=== PATIENT | male | born 1965 | race Caucasian/White ===

== ENCOUNTER 2021-06-15 19:57 | Inpatient (IN) | payer MEDICARE, OTHER ==
[~2021-06-15] VITALS: Ht 177.8 cm; Wt 99.8 kg
--- NOTE | 2021-06-15 20:06 | NUR ---
PT CAME FOR MEDICAL CLEARANCE FROM [facility], PLACED ON 5150 HOLD FOR DTS. PT NOTED TO BE CALM AND COOPERTIVE AT THIS MOMENT . PROVIDED PT WITH CALM, SAFE ENVIRONMENT.
--- NOTE | 2021-06-15 20:10 | NUR ---
DR. MORSE AT BEDSIDE, MSE IN PROGRESS.
--- NOTE | 2021-06-15 20:11 | NUR ---
NURSE PROPERTY ASSISTANT AWARE THAT WE NEED SITTER.
[2021-06-15] MEDS ORDERED: CARV6.252 PO (20:15)
[2021-06-15] MEDS ORDERED: RIVA20TA PO (20:15)
[2021-06-15] MEDS ORDERED: AMOX500C2 PO (20:15)
[2021-06-15] MEDS ORDERED: ACET-2154 PO (20:15)
[2021-06-15] MEDS ORDERED: DIGO125T5 PO (20:15)
[2021-06-15] MEDS ORDERED: ALBUTEROL SULFATE 2.5 MG/3 ML NEBU NEB ONE (21:15)
--- NOTE | 2021-06-15 21:21 | NUR ---
XRAY AT BEDSIDE.
--- NOTE | 2021-06-15 21:25 | NUR ---
LAB AT BEDSIDE.
[2021-06-15 21:37] LABS: HEMATOCRIT 41.6 % (36.7-47.1); MEAN CORPUSCULAR HEMOGLOBIN 35.3 uug (23.8-33.4); MEAN CORPUSCULAR VOLUME 102.4 fL (73.0-96.2); PLATELET COUNT (AUTO) 144 K/uL (152-348)
[2021-06-15] MEDS ORDERED: ALBUTEROL SULFATE 2.5 MG/3 ML NEBU ONE (21:38)
[2021-06-15 21:45] LABS: CREATININE 0.9 mg/dL (0.6-1.3); POTASSIUM 4.3 mmol/L (3.5-5.1)
[2021-06-15] MEDS: MAGNESIUM CHLORIDE 64 MG TABLET.SA PO SCH (22:30)
[2021-06-15] MEDS ORDERED: predniSONE 20 MG TABLET PO ONE (22:30)
[2021-06-15] MEDS ORDERED: predniSONE 20 MG TABLET ONE (22:41)
--- NOTE | 2021-06-15 22:51 | NUR ---
GAVE REPORT TO AYLEEN MYERS.
[2021-06-15] MEDS ORDERED: MAG HYDROX/AL HYDROX/SIMETH 30 ML LIQUID UDC PO PRN (23:15)
[2021-06-15] MEDS ORDERED: ACETAMINOPHEN 325 MG TABLET PO PRN (23:15)
[2021-06-15] MEDS ORDERED: MAGNESIUM HYDROXIDE 30 ML LIQUID UDC PO PRN (23:15)
[2021-06-15] MEDS ORDERED: BLOOD SUGAR DIAGNOSTIC 1 EACH STRIP VI ONE (23:15)
--- NOTE | 2021-06-15 23:35 | NUR ---
Pt. admitted to [facility] , under care of Dr. VAZQUEZ AND DR. EDWARD DX: PSYCHOSIS 5150 HOLD DTS Belongs List completed
[2021-06-15 23:38] VITALS: BP 138/86
[2021-06-16] MEDS: LORAZEPAM 1 MG TABLET PO PRN ×4 (00:19→22:50)
[2021-06-16] MEDS ORDERED: ALBU18HF2 INH (00:28)
[2021-06-16] MEDS ORDERED: HYDROCODONE/APAP 5-325MG TABLET PO STA (01:04)
[2021-06-16] MEDS: TEMAZEPAM 7.5 MG CAPSULE PO PRN ×2 (01:12→20:52)
[2021-06-16] MEDS ORDERED: ACETAMINOPHEN 325 MG TABLET PO PRN (01:15)
--- NOTE | 2021-06-16 02:16 | NUR ---
ADMISSION NOTE : 56 YRS OLD MALE WHO RENTS A ROOM AND LIVES BY HIMSELF WENT TO [facility] ED COMPLAINING OF SUICIDE IDEATION,WHEN ASKED ABOUT A PLAN ,PT STATED,"ANY WAY POSSIBLE,I AM TIRED OF LIVING."HE WAS TRANSFERRED TO [facility] ED TO BE ADMITTED TO MENTAL HEALTH UNIT.PT ARRIVED TO THE UNIT AFTER MEDICALLY CLEARED VIA WHEELCHAIR ON A 5150 FOR DANGER TO SELF AND GRAVE DISABILITY. PATIENT WAS COOPERATIVE WITH INTERVIEW PROCESS. PATIENT WAS PROVIDED WITH PATIENTS RIGHTS MANUAL. PLAN OF CARE IN PLACE. SAFETY PRECAUTIONS IN PLACE. WILL MONITOR FOR SAFETY.
[2021-06-16 07:34] VITALS: BP 126/80
[2021-06-16] MEDS: DIGOXIN 125 MCG TABLET PO SCH (09:55)
[2021-06-16] MEDS: CARVEDILOL 6.25 MG TABLET PO SCH ×2 (09:56→16:37)
[2021-06-16] MEDS: MAGNESIUM CHLORIDE 64 MG TABLET.SA PO SCH (10:01)
--- NOTE | 2021-06-16 10:41 | NUR ---
ALBINO Initial Discharge Note Pt currently resides in independent living located at [address] [place] [address] ([phone]). ALBINO met with pt to discuss discharge planning and pt reports he would like to be referred to a SNF near [place]. Pt requested referral to [facility] where his doctors have privilege. LABINO will continue to work with pt and MD to ensure a safe and proper discharge plan.
--- NOTE | 2021-06-16 10:42 | NUR ---
Firearms Report Supervisor Ordnance Truck Installation completed and submitted a DOJ firearms report for 5150 danger to self certifications. A copy of report has been placed in patient chart.
--- NOTE | 2021-06-16 12:30 | NUR ---
SW Brief Substance Abuse Intervention Patient was provided with a brief substance abuse intervention and referred to the following substance abuse programs: [facility] Substance Abuse Self-helpline ([phone]); [facility] ([phone]); [facility] ([phone]).
[2021-06-16 14:59] LABS: BILIRUBIN,TOTAL 0.4 mg/dL (0.2-1.0); CREATININE 0.8 mg/dL (0.6-1.3); POTASSIUM 4.3 mmol/L (3.5-5.1); TOTAL PROTEIN, SERUM 7.3 g/dL (6.4-8.2)
[2021-06-16] MEDS: HYDROCODONE/APAP 5-325MG TABLET PO PRN ×2 (15:07→21:33)
[2021-06-16 16:02] VITALS: BP 114/70
[2021-06-16] MEDS: RIVAROXABAN 10 MG TABLET PO SCH (16:40)
[2021-06-16] MEDS: ALBUTEROL SULFATE 2.5 MG/3 ML NEBU NEB PRN (19:19)
[2021-06-16 20:01] VITALS: BP 109/70
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
[2021-06-17] MEDS: HYDROCODONE/APAP 5-325MG TABLET PO PRN ×4 (03:50→23:16)
[2021-06-17] MEDS: LORAZEPAM 1 MG TABLET PO PRN ×4 (04:52→23:16)
[2021-06-17 07:30] VITALS: BP 126/99
[2021-06-17] MEDS: MAGNESIUM CHLORIDE 64 MG TABLET.SA PO SCH (08:13)
[2021-06-17] MEDS: DIGOXIN 125 MCG TABLET PO SCH (08:14)
[2021-06-17] MEDS: CARVEDILOL 6.25 MG TABLET PO SCH ×2 (08:14→17:25)
[2021-06-17] MEDS: ALBUTEROL SULFATE 2.5 MG/3 ML NEBU NEB PRN (09:09)
--- NOTE | 2021-06-17 11:15 | NUR ---
Patient is given Ativan 1 mg at 11:07 for anxiety, will be monitored for effectiveness.
[2021-06-17 16:00] VITALS: BP 120/88
--- NOTE | 2021-06-17 16:12 | NUR ---
Received patient awake in his room. A/O X 3 to person, place, situation. Pt. affect is isolative, withdrawn, depressed, fixated on PRN and request them on the clock. Compliant with medications. Patient is given PRN [place] 325 mg at 10:00 and 16:05 for lower back pain rated 8 and 9 on the scale of 1 - 10, will be monitored for effectiveness. Patient is given PRN Ativan 1 mg at 11:07 for anxiety, effective. Ambulates independently. Self care. Continent of bladder and bowel. Emotional support provided. Fall and safety precautions implemented.
[2021-06-17] MEDS: buPROPion XL 150 MG TAB.SR.24H PO SCH (16:52)
[2021-06-17] MEDS: RIVAROXABAN 10 MG TABLET PO SCH (17:26)
--- NOTE | 2021-06-17 18:39 | NUR ---
Patient is given Ativan 1 mg at 18:39 for anxiety, will be monitored for effectiveness.
[2021-06-17 19:57] VITALS: BP 124/82
[2021-06-17] MEDS: TEMAZEPAM 7.5 MG CAPSULE PO PRN (21:03)
[2021-06-17] MEDS: risperiDONE 0.5 MG TABLET PO SCH (21:04)
--- NOTE | 2021-06-18 05:01 | NUR ---
Received patient at the nurses station asking for a sleeping pill. Time was 8pm. This radio news writer explained the timing on his medications. The patient was out at the station each time a medication was due. The patient did not want to engage in any meaningful conversation with this radio news writer, but did deny active SI and made a contract for safety for the shift. Safety stratiges are in place at this time.
[2021-06-18] MEDS: HYDROCODONE/APAP 5-325MG TABLET PO PRN ×3 (05:37→18:09)
[2021-06-18] MEDS: LORAZEPAM 1 MG TABLET PO PRN ×3 (05:38→19:38)
[2021-06-18] MEDS: ALBUTEROL SULFATE 2.5 MG/3 ML NEBU NEB PRN ×2 (06:44→20:08)
[2021-06-18 07:30] VITALS: BP 128/94
[2021-06-18] MEDS: buPROPion XL 150 MG TAB.SR.24H PO SCH (08:40)
[2021-06-18] MEDS: DIGOXIN 125 MCG TABLET PO SCH (08:40)
[2021-06-18] MEDS: MAGNESIUM CHLORIDE 64 MG TABLET.SA PO SCH (08:40)
[2021-06-18] MEDS: CARVEDILOL 6.25 MG TABLET PO SCH ×2 (08:41→16:36)
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
[2021-06-18 16:00] VITALS: BP 96/67
[2021-06-18] MEDS: RIVAROXABAN 10 MG TABLET PO SCH (16:36)
--- NOTE | 2021-06-18 17:19 | NUR ---
Patient is having pain in the right leg, Dr. Baker assessed the patient in person, and will order duplex venous ultrasound, since patient has history of blood clotting.
[2021-06-18] MEDS: risperiDONE 0.5 MG TABLET PO SCH (20:02)
[2021-06-18 20:05] VITALS: BP 131/89
[2021-06-18] MEDS: TEMAZEPAM 7.5 MG CAPSULE PO PRN (21:04)
[2021-06-19] MEDS: HYDROCODONE/APAP 5-325MG TABLET PO PRN ×4 (00:59→20:58)
[2021-06-19] MEDS: LORAZEPAM 1 MG TABLET PO PRN ×4 (01:59→22:20)
--- NOTE | 2021-06-19 02:03 | NUR ---
Received patient in the hallway, med seeking, attention seeker, poor insight and poor judgement. Patient easily irritable. Patient will remain in a psych facility for further evaluation and treatment.
[2021-06-19] MEDS: ALBUTEROL SULFATE 2.5 MG/3 ML NEBU NEB PRN ×2 (02:50→21:47)
[2021-06-19 07:30] VITALS: BP 141/93
--- NOTE | 2021-06-19 07:50 | NUR ---
PATIENT C/O PAIN. NORCO 1 TAB PO GIVEN.
[2021-06-19] MEDS: buPROPion XL 150 MG TAB.SR.24H PO SCH (08:03)
[2021-06-19] MEDS: CARVEDILOL 6.25 MG TABLET PO SCH ×2 (08:04→17:44)
[2021-06-19] MEDS: DIGOXIN 125 MCG TABLET PO SCH (08:04)
[2021-06-19] MEDS: MAGNESIUM CHLORIDE 64 MG TABLET.SA PO SCH (08:04)
--- NOTE | 2021-06-19 08:50 | NUR ---
PATIENT STATED I AM FEELING BETTER NOW PRN EFFECTIVE.
--- NOTE | 2021-06-19 09:20 | NUR ---
nsg: patient c/o anxiety. ativan 1 mg po given.
--- NOTE | 2021-06-19 10:20 | NUR ---
GPS: PATIENT STATED I AM FEELING BETTER NOW. PRN EFFECTIVE.
--- NOTE | 2021-06-19 12:36 | NUR ---
SNF Referral Note SW faxed facesheet, Psych h&p, medical consult, last 3 progress notes, med list, and labs to [facility] ([phone]), [facility] ([phone]), and [facility] ([phone]). All 3 locations pending.
--- NOTE | 2021-06-19 15:18 | NUR ---
Received patient awake in his room. A/O X 3 - 4 to person, place, environment, situation. Pt. affect is demanding, needy, irritable at times, fixated on narcotics and request them on the clock. [place] is given at 14:58 for lower back pain 9 on the scale of 1 to 10, will be monitored for effectiveness. Denies suicidal ideation, states "I want to start a new life now on". Ambulates independently. Active listening provided. Fall and safety precautions implemented.
[2021-06-19 16:00] VITALS: BP_SYST 103; BP_SYST 135; BP_DIAS 73; BP_DIAS 96
--- NOTE | 2021-06-19 16:10 | NUR ---
ALBINO PC Hearing: Patient had 5250 probable cause hearing today and the hold was lifted.
[2021-06-19] MEDS: RIVAROXABAN 10 MG TABLET PO SCH (17:42)
[2021-06-19 20:00] VITALS: BP 130/91
[2021-06-19] MEDS: risperiDONE 1 MG TABLET PO SCH (20:59)
[2021-06-19] MEDS ORDERED: risperiDONE 0.5 MG TABLET PO SCH (21:00)
[2021-06-19] MEDS: TEMAZEPAM 7.5 MG CAPSULE PO PRN (23:12)
[2021-06-20] MEDS: TEMAZEPAM 7.5 MG CAPSULE PO PRN ×2 (00:24→22:43)
[2021-06-20] MEDS: HYDROCODONE/APAP 5-325MG TABLET PO PRN ×3 (03:34→15:55)
[2021-06-20] MEDS: ALBUTEROL SULFATE 2.5 MG/3 ML NEBU NEB PRN ×2 (04:11→15:02)
[2021-06-20] MEDS: LORAZEPAM 1 MG TABLET PO PRN ×3 (04:30→22:35)
--- NOTE | 2021-06-20 05:27 | NUR ---
Patient was requesting medications all during the night, exactly at the times when they were due. This account underwriter was able to make a verbal contract for safety with the patient and, at that time ,the patient denied feelings of SI. Twice during the night, the patient requested a respiratory treatment for wheezing. No acute distress was noted and the oxygen saturation remained in normal limits. Safety Stratiges are in place.
[2021-06-20 07:30] VITALS: BP 124/90
[2021-06-20] MEDS: CARVEDILOL 6.25 MG TABLET PO SCH ×2 (08:13→17:06)
[2021-06-20] MEDS: DIGOXIN 125 MCG TABLET PO SCH (08:13)
[2021-06-20] MEDS: buPROPion XL 150 MG TAB.SR.24H PO SCH (08:13)
[2021-06-20] MEDS: MAGNESIUM CHLORIDE 64 MG TABLET.SA PO SCH (08:13)
--- NOTE | 2021-06-20 09:06 | NUR ---
PT RECEIVED PROPELLING SELF WITH W/C. PT IS QUITE MED SEEKING, PERSEVERATING ON ANY PRN'S AVAILABLE. COMPLIANT WITH MEDICATIONS AND CARE. APPEARS DEPRESSED BUT DENIES SI. NO AGGRESSIVE OR COMBATIVE BEHAVIOR NOTED.
--- NOTE | 2021-06-20 10:30 | NUR ---
ADMINISTERED 1MG ATIVAN PO FOR ANXIETY PER REQUEST
--- NOTE | 2021-06-20 14:54 | NUR ---
PT NOTED EXCESSIVELY NEEDY AND MED SEEKING. FREQUENTLY AT NURSES STATION ASKING FOR PAIN MEDICATIONS. INFORMED PT OF MEDICATION TIMES, AND PT REFUSES TO LEAVE NURSES STATION AFTER MULTIPLE REQUESTS, DUE TO PATIENT PRIVACY ISSUES AT NURSES STATION. ENCOURAGED TO GO TO DAY ROOM ATTEND ACTIVITIES OR WATCH TV UNTIL MEDICATIONS IS DUE, AND PT STATED, "NOPE, I'LL STAY RIGHT HERE IF I WANT TO." STAFF CALLED SECURITY TO ESCORT PT AWAY. MAKING MULTIPLE ACCUSATORY COMPLAINTS THAT THE PREVENTIVE MEDICINE SPECIALIST IS "SINGLING ME OUT". PT KEEPS A LOG OF THE EXACT TIME PRN'S ARE GIVEN AND WANTS NURSE TO GIVE MEDICATIONS AT THE EXACT TIME WHEN PRN'S ARE DUE. REQUIRES FREQUENT REDIRECTION.
[2021-06-20 16:57] VITALS: BP 133/97
[2021-06-20] MEDS: RIVAROXABAN 10 MG TABLET PO SCH (17:04)
--- NOTE | 2021-06-20 17:05 | NUR ---
PT FREQUENTLY AT NURSES STATION UNIT WITH MULTIPLE COMPLAINTS AND GRIEVANCES, DIFFICULT TO SATISFY ALL OF PT'S NEEDS AND REQUESTS. PROPELS SELF WITH W/C EVEN THOUGH NOTED MANY TIMES AMBULATING WITHOUT DIFFICULTY AND WITH STEADY GAIT. PT QUITE MANIPULATIVE AND ATTENTION SEEKING BEHAVIOR. CONTINUES TO COMPLAIN OF UPPER AND LOWER BACK PAIN AND WANTS NORCO INCREASED. STATES "I'M VERY AWARE OF MY PATIENTS RIGHTS AND I NEED MY PAIN MEDICATIONS INCREASED." CALLED DR. MORENO AND INCREASED NORCO ORDER. NOTED AND WILL CARRY OUT. CONTINUES TO REQUIRES FREQUENT AND CONSTANT REDIRECTION.
[2021-06-20 20:00] VITALS: BP 130/95
[2021-06-20] MEDS: risperiDONE 1 MG TABLET PO SCH (20:01)
[2021-06-20] MEDS: OXCARBAZEPINE 300 MG TABLET PO SCH (20:02)
[2021-06-20] MEDS: HYDROCODONE/APAP 10-325 MG TABLET PO PRN (22:35)
[2021-06-21] MEDS: ALBUTEROL SULFATE 2.5 MG/3 ML NEBU NEB PRN ×2 (00:57→22:05)
--- NOTE | 2021-06-21 03:24 | NUR ---
Received the patient at the start of the shift, watching the nurses at the station and inquiring about his medication schedule. This selling underwriter has medicated the patient with the PRNs that were ordered. The patient has been very needy and invasive with the staff. No situational awareness. He has been requesting multiple items, cloths, food, etc. Mood has been calm, but the patient is clearly manipulative. No changes from the previous maintenance mechanic 2nd shift are noted. As of now, 03:30am, the patient has had no sleep hours and is currently in the day room, awaiting his next medications. Safety stratiges are in place and the patient denies SI .
[2021-06-21] MEDS: LORAZEPAM 1 MG TABLET PO PRN ×2 (04:39→11:53)
[2021-06-21] MEDS: HYDROCODONE/APAP 10-325 MG TABLET PO PRN ×4 (04:40→23:14)
[2021-06-21 07:30] VITALS: BP 141/105
[2021-06-21] MEDS: MAGNESIUM CHLORIDE 64 MG TABLET.SA PO SCH (08:14)
[2021-06-21] MEDS: buPROPion XL 150 MG TAB.SR.24H PO SCH (08:14)
[2021-06-21] MEDS: DIGOXIN 125 MCG TABLET PO SCH (08:15)
[2021-06-21] MEDS: CARVEDILOL 6.25 MG TABLET PO SCH ×2 (08:15→16:31)
[2021-06-21] MEDS: OXCARBAZEPINE 150 MG TABLET PO SCH ×2 (08:15→12:02)
--- NOTE | 2021-06-21 10:55 | NUR ---
PT STATED C/O 910 SHARP AND CHRONIC LOWER AND UPPER BACK PAIN . ADMINISTERED NORCO 10MG/325MG PO PER REQUEST AT THIS TIME.
[2021-06-21] MEDS: RIVAROXABAN 10 MG TABLET PO SCH (16:31)
[2021-06-21] MEDS ORDERED: LORAZEPAM 1 MG TABLET PO PRN (18:00)
[2021-06-21] MEDS: LORAZEPAM 0.5 MG TABLET PO PRN (18:44)
[2021-06-21 20:00] VITALS: BP 126/95
[2021-06-21] MEDS: OXCARBAZEPINE 300 MG TABLET PO SCH (20:24)
[2021-06-21] MEDS ORDERED: risperiDONE 1 MG TABLET PO SCH (21:00)
--- NOTE | 2021-06-21 21:00 | NUR ---
AOX3,ANXIOUS,RESTLESS,SUSPICIOUS,NEEDY,DEMANDING,MANIPULATIVE,ARGUMENTATIV E,MED AND ATTENTION SEEKING.PT REQUESTED FOR HIS LIST OF MEDS AND WANTED A SLEEPING PILL WHEN WAS TOLD THAT HAVE TO BE I HOUR AFTER HIS ROUTINE HS PSYCH.MED THEN HE WANTED TO KNOW IF IT'S TIME FOR PAIN MED AND WHEN HE CAN TAKE THE NEXT ANXIETY MED.HE ASKED FOR BREATHING RX BUT RT STILL BUSY WITH CCU PATIENT THEN HE ASKED AGAIN AND AGAIN TO GET THE BREATHING RX WHEN HE IS NOT IN RESP.DISTRESS.PT GOT IRRITATED/ANGRY WHEN STAFF TOLD HIM TO RELAX AND TRY TO GO TO SLEEP INSTEAD OF STAY AWAKE TO WAITING FOR THE TIME TO GET NEXT PRN MEDS WHEN IT DUES.SOMATIC COMPLIANTS AND C/O EVERYTHING.IN NO ACUTE DISTRESS.WILL CONTINUE TO MONITOR.
[2021-06-21] MEDS: TEMAZEPAM 7.5 MG CAPSULE PO PRN (21:59)
[2021-06-22] MEDS ORDERED: GUAIFENESIN/DEXTROMETHORPHAN 5 ML UDC PO PRN (00:30)
--- NOTE | 2021-06-22 00:36 | NUR ---
PATIENT APPROACHED THE NURSING STATION STATING THAT HE IS HAVING SOME NASAL CONGESTION AND COUGH. PATIENT IS AFEBRILE, V/S ARE STABLE, HE IS IN NO DISTRESS. DR PHAM, THE ENGINE CLEANER DOCTOR, WAS NOTIFIED AND NEW ORDER OBTAINED TO ADMINISTER [place] DM 5ML PO Q6HRS PRN COUGH AND TO HAVE DR PICKERING RE-EVALUATE PATIENT IN THE MORNING. ORDER NOTED AND CARRIED OUT. WILL CONTINUE TO MONITOR.
[2021-06-22] MEDS: LORAZEPAM 0.5 MG TABLET PO PRN ×4 (01:01→20:31)
[2021-06-22] MEDS: ALBUTEROL SULFATE 2.5 MG/3 ML NEBU NEB PRN ×2 (04:24→22:55)
[2021-06-22] MEDS: HYDROCODONE/APAP 10-325 MG TABLET PO PRN ×3 (05:15→17:35)
--- NOTE | 2021-06-22 07:34 | NUR ---
PT APPROACHES NURSES STATION THIS AM DEMANDING ATIVAN. STATED NURSES ARE IN THE MIDDLE OF REPORT AND WILL ADMINISTER SOON POSSIBLE. PT GETS VERBALLY AGGRESSIVE, THREATENING STAFF, SAYING "I'M GONNA GET EVERYONE THAT LOOKS LIKE YOU FIRED, JUST WATCH." CONTINUES TO BE EXCESSIVELY NEEDY, MANIPULATIVE, IMPATIENT, AND DEMANDING. REFUSES TO LEAVE NURSES STATION WHILE PRIVATE PATIENT INFORMATION IS EXCHANGED. REQUIRES FREQUENT AND EXCESSIVE REDIRECTION.
[2021-06-22 07:42] VITALS: BP 158/98
--- NOTE | 2021-06-22 07:45 | NUR ---
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 PT IS NOT ASSIGNED TO OTHER STAFF NURSE.
--- NOTE | 2021-06-22 09:00 | NUR ---
Patient was assigned to me because he was accusing the previous assigned nurse of threatening him of lowering his Ativan dose, and not giving to him on the clock. Patient is demanding, attention seeker, accusatory towards staff, fixated on narcotics, manipulative. Patient ask to increase his Ativan dose and Restoril because they're not effective.
[2021-06-22] MEDS: OXCARBAZEPINE 150 MG TABLET PO SCH ×3 (09:02→20:11)
[2021-06-22] MEDS: MAGNESIUM CHLORIDE 64 MG TABLET.SA PO SCH (09:03)
[2021-06-22] MEDS: DIGOXIN 125 MCG TABLET PO SCH (09:04)
[2021-06-22] MEDS: CARVEDILOL 6.25 MG TABLET PO SCH ×2 (09:05→16:38)
[2021-06-22] MEDS: buPROPion XL 150 MG TAB.SR.24H PO SCH (09:05)
--- NOTE | 2021-06-22 12:44 | NUR ---
Patient is getting snacks from the fridge, unlocking it with his finger, and witness by other patients and staff in surveillance cameras. Patient denies it.
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
[2021-06-22 15:47] VITALS: BP 137/97
[2021-06-22] MEDS: RIVAROXABAN 10 MG TABLET PO SCH (16:40)
--- NOTE | 2021-06-22 17:37 | NUR ---
Pt is at the nurses station at this time complaining that he did not received sugar with his dinner, and it's because "you people have a vendetta against me. This is retaliation. Don't fuck with the [place] side of me, i know where you park your cars."
[2021-06-22] MEDS ORDERED: TEMAZEPAM 7.5 MG CAPSULE PO PRN (19:15)
[2021-06-22 20:08] VITALS: BP 146/98
[2021-06-22] MEDS: MELATONIN 3 MG TABLET PO SCH (20:10)
[2021-06-22] MEDS: risperiDONE-M 0.5 MG TAB.RAPDIS PO SCH (20:10)
[2021-06-23] MEDS: HYDROCODONE/APAP 10-325 MG TABLET PO PRN ×5 (01:55→22:00)
[2021-06-23] MEDS: LORAZEPAM 0.5 MG TABLET PO PRN ×3 (02:40→19:07)
[2021-06-23 07:41] VITALS: BP 139/87
--- NOTE | 2021-06-23 08:08 | NUR ---
Patient refuses his blood to be drawn by the wood cutter this morning.
[2021-06-23] MEDS: OXCARBAZEPINE 300 MG TABLET PO SCH ×2 (09:05→13:48)
[2021-06-23] MEDS: MAGNESIUM CHLORIDE 64 MG TABLET.SA PO SCH (09:06)
[2021-06-23] MEDS: DIGOXIN 125 MCG TABLET PO SCH (09:06)
[2021-06-23] MEDS: buPROPion XL 150 MG TAB.SR.24H PO SCH (09:07)
[2021-06-23] MEDS: CARVEDILOL 6.25 MG TABLET PO SCH ×2 (09:07→17:06)
[2021-06-23] MEDS: ALBUTEROL SULFATE 2.5 MG/3 ML NEBU NEB PRN ×2 (10:18→21:34)
--- NOTE | 2021-06-23 11:53 | NUR ---
Social Work Coordination of Care: Operations Support Representative faxed patient's referral packet including: History and Physical, Consultation, Progress Notes, Medication List and Labs to the following facilities for review and possible [facility]p placement: [facility] ([phone]) and contact admissions, michelle. [facility] ([phone]) and contacted Radha. Pt continually asks SW regarding placement options and that pt reported "I am getting stressed in this place." SW notified pt that she and Dr. Trotter are working to find a proper placement for him and that it takes time to receive a response and we will notify the pt as soon as we know. Pt responded that he was thankful and understands.
--- NOTE | 2021-06-23 14:43 | NUR ---
ER called and told us patient is calling the metal pickling equipment operator multiple times and for him to stop. Also patient denies sneaking into the fridge but after reviewing the footage we saw patient open the fridge and remove multiple items. Engineering came to fix it and security was called to confront him.
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
[2021-06-23 15:40] VITALS: BP 158/100
--- NOTE | 2021-06-23 15:48 | NUR ---
Received patient sleeping in her room. A/O X 4 to person, place, environment. Pt. affect is manipulative, needy, demanding, entitled, accusatory towards staff "I'm going to call patient's rights" whenever we don't do whatever he wants. Patient complaints about breathing treatment being late this morning. Compliant with medications. Fixated on narcotics. Ativan given at 10:10 am and [place] given twice at 08:20 and 14:35. Lab came for Troponin test. Ambulates with wheel chair. Active listening provided. Fall and safety precautions implemented.
--- NOTE | 2021-06-23 16:27 | NUR ---
Patient troponin results are < 0.017 which indicates normal. < 0.056 is normal.
[2021-06-23] MEDS: RIVAROXABAN 10 MG TABLET PO SCH (17:11)
--- NOTE | 2021-06-23 18:23 | NUR ---
Patient is being accusatory towards staff, demanding about his medications such as Ativan and [place]. Pt. is threatening to call patient's rights "I don't feel respected here" "I want Ativan because I'm very anxious right now" Patient stated that he was having a heart attack earlier, exams showed that he had normal Troponin levels.
--- NOTE | 2021-06-23 19:30 | NUR ---
Received pt awake, alert and orientedx4. Pt in no acute distress. Safety and comfort provided. Will continue to monitor.
[2021-06-23 20:00] VITALS: BP 136/89
[2021-06-23] MEDS: TEMAZEPAM 15 MG CAPSULE PO SCH (20:44)
[2021-06-23] MEDS: MELATONIN 3 MG TABLET PO SCH (20:44)
[2021-06-23] MEDS: risperiDONE-M 0.5 MG TAB.RAPDIS PO SCH (20:45)
[2021-06-23] MEDS: OXCARBAZEPINE 150 MG TABLET PO SCH (20:46)
[2021-06-23] MEDS ORDERED: TEMAZEPAM 7.5 MG CAPSULE PO SCH (21:00)
--- NOTE | 2021-06-23 22:45 | NUR ---
Pt given [place] PRN at 2200H for 8/10 pain for his lower back and right leg pain. . Pt tolerated it well. After 30 minutes pt stating he felt better the pain subsided. Pt in no acute distress. Safety provided. Will continue to monitor.
[2021-06-24] MEDS: LORAZEPAM 0.5 MG TABLET PO PRN ×4 (01:13→22:11)
--- NOTE | 2021-06-24 02:00 | NUR ---
At 0113h pt was given Ativan .75mg prn for pt anxiety . Pt tolerated it well. There's incident that pt is punching the bathroom door because he got upset . Pt verbally abusive to staff. Staff called security and pt is telling us to leave him alone. Reoriented pt the hospital rules.Will continue to monitor.
[2021-06-24] MEDS: HYDROCODONE/APAP 10-325 MG TABLET PO PRN ×4 (04:04→22:13)
--- NOTE | 2021-06-24 05:32 | NUR ---
[place] prn given at 0404h for 9/10 pain scale on his lower back and right lower leg. Pt tolerated it well. Reassessment after an hour pt is sleeping . Pt tolerated it well. Will continue to monitor.
--- NOTE | 2021-06-24 06:07 | NUR ---
Pt in no acute distress. Prescribed medication given and pt tolerated it well. Safety and comfort provided. All needs are met. Breathing treatment given twice on my shift. PRn [place] and Ativan given. Pt stable. Will endorse to incoming nurse for continuity of care.
[2021-06-24] MEDS: ALBUTEROL SULFATE 2.5 MG/3 ML NEBU NEB PRN (06:14)
[2021-06-24] MEDS: MAGNESIUM CHLORIDE 64 MG TABLET.SA PO SCH (09:29)
[2021-06-24] MEDS: CARVEDILOL 6.25 MG TABLET PO SCH ×2 (09:29→17:00)
[2021-06-24] MEDS: OXCARBAZEPINE 300 MG TABLET PO SCH ×2 (09:30→13:58)
[2021-06-24] MEDS: DIGOXIN 125 MCG TABLET PO SCH (09:30)
[2021-06-24] MEDS: buPROPion XL 150 MG TAB.SR.24H PO SCH (09:44)
--- NOTE | 2021-06-24 11:35 | NUR ---
ALBINO Referral Note: ALBINO contacted Jesse Schwartz and [facility] and faxed patient's referral packet including: History and Physical, Consultation, Progress Notes, Medication List and Labs.
--- NOTE | 2021-06-24 15:28 | NUR ---
SW Contact Note: Pt continually asks SW throughout the day in an agitated behavior to call and find out his nursing placement status for the multiple placements the pt has been contacting himself. SW continues to verbally expressed to the pt that she has contacted the facilities and they have not received the fax or they are reviewing. SW continues to provide safe and proper care for the pt and updates as needed.
[2021-06-24] MEDS: RIVAROXABAN 10 MG TABLET PO SCH (18:06)
--- NOTE | 2021-06-24 18:48 | NUR ---
patient alert and oriented times three and mood manipulative, needy and intrusive with staff and peers. Patient c/o leg pain and spine pain medicated q 6 hours atc . Assisted as needed . Prt had shower and up and down in w/c most of shift, continue to monitor for safety
[2021-06-24 19:50] VITALS: BP 142/74
[2021-06-24] MEDS: risperiDONE-M 0.5 MG TAB.RAPDIS PO SCH (20:43)
[2021-06-24] MEDS: TEMAZEPAM 15 MG CAPSULE PO SCH (20:43)
[2021-06-24] MEDS ORDERED: OXCARBAZEPINE 300 MG TABLET PO SCH (21:00)
[2021-06-24] MEDS ORDERED: MELATONIN 3 MG TABLET PO SCH (21:00)
[2021-06-25] MEDS: ALBUTEROL SULFATE 2.5 MG/3 ML NEBU NEB PRN ×2 (00:33→10:01)
[2021-06-25] MEDS: LORAZEPAM 0.5 MG TABLET PO PRN ×3 (04:03→15:17)
[2021-06-25] MEDS: HYDROCODONE/APAP 10-325 MG TABLET PO PRN ×2 (04:03→10:17)
--- NOTE | 2021-06-25 04:59 | NUR ---
Pt A/O, slept intermittently, no s/s of distress. no change in LOC. Manifested some relief of pain after interventions. Observed to be needy, med-seeking, manipulative, hyperverbal and intrusive. Compliant with meds but demands to get his PRN meds at specific times. Nurses on duty had to explain the frequency and interval of narcotics multiple times. Ativan and [place] administered per MD order. Pt needs some redirection. Needs attended to in a timely manner. Safety precautions in place.
[2021-06-25 07:30] VITALS: BP 137/98
[2021-06-25] MEDS: MAGNESIUM CHLORIDE 64 MG TABLET.SA PO SCH (08:44)
[2021-06-25] MEDS: DIGOXIN 125 MCG TABLET PO SCH (08:44)
[2021-06-25] MEDS: buPROPion XL 150 MG TAB.SR.24H PO SCH (08:44)
[2021-06-25] MEDS: OXCARBAZEPINE 300 MG TABLET PO SCH ×2 (08:44→13:05)
[2021-06-25 08:46] VITALS: BP 137/98
[2021-06-25] MEDS: CARVEDILOL 6.25 MG TABLET PO SCH (08:46)
--- NOTE | 2021-06-25 10:05 | NUR ---
SW Note Pt confronted the SW and expressed he was upset with everyone at the unit as he proceeded to yell and curse at the staff and patients. SW explained to the pt that she has been communicating the accepted facilities and every update with the pt throughout his stay. SW also stated that his discharge location is to [facility] where SW previously had discussed. SW stated that the facility is not a permanent location for the pt. Pt then stated that he is not happy but he agrees with the discharge plan.
--- NOTE | 2021-06-25 10:30 | NUR ---
GPS: PT RECEIVED ON BED, AWAKE AND ALERT AND ORIENTED X 3. PT WILL BE DISCHARGED TO [facility] TODAY. PT NEEDY AND ATTENTION SEEKER AND ON THE DOT FOR NORCO AND ATIVAN MED. PT EASILY GETS IRRITATED.
--- NOTE | 2021-06-25 13:47 | NUR ---
ALBINO Discharge Note Pt will be discharged to [facility] [address] [place] [address] ([phone]) via Ambulance transportation at 2PM. ALBINO spoke with admin coordinator, Radha at the facility who states they are ready to accept the patient today. Pt is aware and agreeable with discharge plans. Pt is alert and oriented x4, is unable to plan for self-care at this time; however, is willing to accept care at SNF. Pt denies any suicidal or homicidal ideation. Pt will follow-up at the facility with Psychiatrist, Dr. Trotter and Bandage Winding Machine Operator, Dr. Schwartz. Pt presents with calm mood and congruent affect.
--- NOTE | 2021-06-25 16:22 | NUR ---
GPS: PT FEELS ANXIOUS ABOUT THE DISCHARGE TIME. PT VARGHESE EXCITED. PT REQUESTED FOR AN ATIVAN BEFORE DISCHARGE. PER DR GOMZE OVER THE PHONE, OKAY TO GIVE THE ATIVAN A BIT EARLIER THAN THE Q6HR PRN. GIVEN ATIVAN 0.75MG AND TOLERATED WELL BY PT. ALL BELONGINGS GIVEN TO PT AND SIGNED PAPERS.
== END 2021-06-25 16:34 | DRG 885 ==
LOC: ER 20:08 → GPS 23:11
PROVIDERS: ADMIT Psychiatry & Neurology Psychiatry; ATTEND Student in an Organized Health Care Education/Training Program
DX: F31.9 Bipolar disorder, unspecified (principal); R45.851 Suicidal ideations; F19.20 Other psychoactive substance dependence, uncomplicated; R94.31 Abnormal electrocardiogram [ECG] [EKG]; Z86.711 Personal history of pulmonary embolism; Z79.01 Long term (current) use of anticoagulants; Z76.5 Malingerer [conscious simulation]; F43.10 Post-traumatic stress disorder, unspecified; D72.829 Elevated white blood cell count, unspecified; D69.6 Thrombocytopenia, unspecified; F60.9 Personality disorder, unspecified; G89.29 Other chronic pain; M54.50 Low back pain, unspecified; Z91.19 Patient's noncompliance with other medical treatment and regimen; J98.01 Acute bronchospasm; I50.9 Heart failure, unspecified; Z79.899 Other long term (current) drug therapy; I48.91 Unspecified atrial fibrillation; Z95.0 Presence of cardiac pacemaker; G47.00 Insomnia, unspecified; Z62.810 Personal history of physical and sexual abuse in childhood; Z82.49 Family history of ischemic heart disease and other diseases of the circulatory system; Z86.79 Personal history of other diseases of the circulatory system; Z87.01 Personal history of pneumonia (recurrent)
CPT/HCPCS: 36415; 70030-TC; 71045; 83735; 84443; 85025; 87040; 94640; 97161; A4663; J7512

== ENCOUNTER 2023-02-20 18:22 | Inpatient (IN) | payer MEDICARE, OTHER ==
[~2023-02-20] VITALS: Ht 180.3 cm; Wt 91.6 kg
[~2023-02-20 18:22] MED LIST: ACET-2154 PO; ALBU18HF2 INH; AMOX500C2 PO; CARV6.252 PO; DIGO125T5 PO; RIVA20TA PO
[2023-02-20] MEDS ORDERED: HYDROCODONE/APAP 10-325 MG TABLET ONE (19:12)
[2023-02-20] MEDS ORDERED: HYDROCODONE/APAP 10-325 MG TABLET PO ONE (19:15)
[2023-02-20] MEDS ORDERED: CLONAZEPAM 0.5 MG TABLET PO ONE (20:30)
[2023-02-20 22:56] VITALS: BP 116/74; TEMP 98.4; O2SAT 97
[2023-02-20] MEDS ORDERED: BLOOD SUGAR DIAGNOSTIC 1 EACH STRIP VI ONE (23:45)
[2023-02-20] MEDS ORDERED: ACETAMINOPHEN 325 MG TABLET PO PRN (23:45)
[2023-02-20] MEDS ORDERED: MAG HYDROX/AL HYDROX/SIMETH 30 ML LIQUID UDC PO PRN (23:45)
[2023-02-20] MEDS ORDERED: MAGNESIUM HYDROXIDE 30 ML LIQUID UDC PO PRN (23:45)
[2023-02-21] MEDS: TEMAZEPAM 7.5 MG CAPSULE PO PRN (02:28)
[2023-02-21 08:01] VITALS: BP 130/64; TEMP 98.2; O2SAT 100
[2023-02-21 08:17] LABS: ALANINE AMINOTRANSFERASE 28 U/L (16-63); ALBUMIN 2.8 g/dL (3.4-5.0); ALKALINE PHOSPHATASE 63 U/L (50-136); ASPARTATE AMINOTRANSFERASE 23 U/L (15-37); BILIRUBIN,TOTAL 0.7 mg/dL (0.2-1.0); CARBON DIOXIDE 28 mmol/L (21-32); CHLORIDE 108 mmol/L (98-107); CREATININE 0.6 mg/dL (0.6-1.3); GLUCOSE 115 mg/dL (74-106); POTASSIUM 4.1 mmol/L (3.5-5.1); SODIUM SERUM 142 mmol/L (136-145); TOTAL PROTEIN, SERUM 6.4 g/dL (6.4-8.2); UREA NITROGEN, BLOOD 11 mg/dL (7-18)
[2023-02-21] MEDS ORDERED: HYDR-3980 PO (09:36)
[2023-02-21] MEDS ORDERED: TEMA30CA PO (09:38)
[2023-02-21] MEDS ORDERED: CLON1TAB12 PO (09:39)
[2023-02-21] MEDS ORDERED: FURO20TA4 PO (09:42)
[2023-02-21] MEDS ORDERED: DAPA10TA PO (09:43)
[2023-02-21] MEDS: SERTRALINE HCL 50 MG TABLET PO SCH (12:30)
[2023-02-21] MEDS: LORAZEPAM 0.5 MG TABLET PO PRN ×2 (14:18→20:30)
[2023-02-21] MEDS: DAPAGLIFLOZIN PROPANEDIOL 5 MG TABLET PO SCH (14:45)
[2023-02-21] MEDS ORDERED: HYDROCODONE/APAP 10-325 MG TABLET PO PRN (14:45)
[2023-02-21] MEDS: HYDROCODONE/APAP 10-325 MG TABLET PO PRN (15:34)
[2023-02-21] MEDS: DIGOXIN 125 MCG TABLET PO SCH (15:37)
[2023-02-21 16:31] VITALS: BP 98/51; TEMP 98; O2SAT 100
[2023-02-21] MEDS: FUROSEMIDE 20 MG TABLET PO SCH (16:44)
[2023-02-21] MEDS: CARVEDILOL 6.25 MG TABLET PO SCH (17:00)
[2023-02-21] MEDS: RIVAROXABAN 10 MG TABLET PO SCH (17:07)
[2023-02-21 20:32] VITALS: BP 103/55; TEMP 98; O2SAT 96
[2023-02-22] MEDS: HYDROCODONE/APAP 10-325 MG TABLET PO PRN ×3 (00:23→16:26)
[2023-02-22] MEDS: LORAZEPAM 0.5 MG TABLET PO PRN ×4 (02:32→20:48)
[2023-02-22 07:54] VITALS: BP 114/71; TEMP 98.4; O2SAT 99
[2023-02-22] MEDS: CARVEDILOL 6.25 MG TABLET PO SCH ×2 (08:14→16:26)
[2023-02-22] MEDS: DAPAGLIFLOZIN PROPANEDIOL 5 MG TABLET PO SCH (08:14)
[2023-02-22] MEDS: DIGOXIN 125 MCG TABLET PO SCH (08:15)
[2023-02-22] MEDS: FUROSEMIDE 20 MG TABLET PO SCH ×2 (08:15→16:26)
[2023-02-22] MEDS: SERTRALINE HCL 50 MG TABLET PO SCH (12:20)
[2023-02-22 16:25] VITALS: BP 116/69; TEMP 98; O2SAT 98
[2023-02-22] MEDS: RIVAROXABAN 10 MG TABLET PO SCH (17:09)
[2023-02-22 20:00] VITALS: BP 106/61; TEMP 98; O2SAT 95
[2023-02-22] MEDS: TEMAZEPAM 7.5 MG CAPSULE PO PRN (22:10)
[2023-02-23] MEDS: HYDROCODONE/APAP 10-325 MG TABLET PO PRN ×3 (00:50→16:29)
[2023-02-23 07:42] VITALS: BP 108/72; TEMP 98; O2SAT 98
[2023-02-23] MEDS: LORAZEPAM 0.5 MG TABLET PO PRN ×2 (07:58→13:57)
[2023-02-23] MEDS: CARVEDILOL 6.25 MG TABLET PO SCH ×2 (08:39→16:29)
[2023-02-23] MEDS: DIGOXIN 125 MCG TABLET PO SCH (08:39)
[2023-02-23] MEDS: FUROSEMIDE 20 MG TABLET PO SCH ×2 (08:40→16:30)
[2023-02-23] MEDS: DAPAGLIFLOZIN PROPANEDIOL 5 MG TABLET PO SCH (08:40)
[2023-02-23] MEDS: SERTRALINE HCL 50 MG TABLET PO SCH (12:17)
[2023-02-23 15:06] VITALS: BP 103/71; TEMP 98; O2SAT 98
[2023-02-23] MEDS: RIVAROXABAN 10 MG TABLET PO SCH (17:30)
[2023-02-23 20:05] VITALS: BP 111/68; TEMP 98.1; O2SAT 95
[2023-02-23] MEDS: TEMAZEPAM 7.5 MG CAPSULE PO PRN (22:20)
[2023-02-24] MEDS: HYDROCODONE/APAP 10-325 MG TABLET PO PRN ×2 (00:41→10:43)
[2023-02-24] MEDS: LORAZEPAM 0.5 MG TABLET PO PRN ×2 (06:00→14:22)
[2023-02-24 08:05] VITALS: BP 127/95; TEMP 98; O2SAT 99
[2023-02-24 09:00] VITALS: BP 144/100; O2SAT 99
[2023-02-24] MEDS: DAPAGLIFLOZIN PROPANEDIOL 5 MG TABLET PO SCH (09:00)
[2023-02-24] MEDS: FUROSEMIDE 20 MG TABLET PO SCH (10:09)
[2023-02-24 10:12] VITALS: BP 144/100
[2023-02-24] MEDS: CARVEDILOL 6.25 MG TABLET PO SCH (10:12)
[2023-02-24] MEDS: DIGOXIN 125 MCG TABLET PO SCH (10:22)
[2023-02-24] MEDS: SERTRALINE HCL 50 MG TABLET PO SCH (13:20)
== END 2023-02-24 15:45 | DRG 885 ==
LOC: ER 18:29 → GPS 21:15
PROVIDERS: ADMIT Psychiatry & Neurology Psychosomatic Medicine; ATTEND Nurse Practitioner Acute Care
DX: F33.2 Major depressive disorder, recurrent severe without psychotic features (principal); E44.0 Moderate protein-calorie malnutrition; M84.48XA Pathological fracture, other site, initial encounter for fracture; E88.09 Other disorders of plasma-protein metabolism, not elsewhere classified; Z79.891 Long term (current) use of opiate analgesic; F31.9 Bipolar disorder, unspecified; F43.10 Post-traumatic stress disorder, unspecified; G89.29 Other chronic pain; I25.10 Atherosclerotic heart disease of native coronary artery without angina pectoris; I25.5 Ischemic cardiomyopathy; I48.91 Unspecified atrial fibrillation; Z59.00 Homelessness unspecified; Z79.01 Long term (current) use of anticoagulants; Z86.711 Personal history of pulmonary embolism; F60.9 Personality disorder, unspecified; F19.10 Other psychoactive substance abuse, uncomplicated; Z91.81 History of falling; Z95.810 Presence of automatic (implantable) cardiac defibrillator; Z86.19 Personal history of other infectious and parasitic diseases; M06.9 Rheumatoid arthritis, unspecified; Z79.899 Other long term (current) drug therapy; Z68.28 Body mass index [BMI] 28.0-28.9, adult; F41.9 Anxiety disorder, unspecified
CPT/HCPCS: 36415; 71111; 93005